=== PATIENT | male | born 1990 | race Caucasian/White ===

== ENCOUNTER 2018-01-24 22:08 | Emergency (ER) | payer BC, OTHER ==
[~2018-01-24] VITALS: Ht 172.7 cm; Wt 68.7 kg
[2018-01-24 22:12] VITALS: BP 130/85; TEMP 36.6; Ht 172.7 cm; Wt 68.7 kg
[2018-01-24] MEDS ORDERED: OXYCODONE HCL IR 5 MG TAB (IMMEDIATE RELEASE) PO STA (22:36)
[2018-01-24] MEDS ORDERED: BUPIVACAINE 0.5 % 5 MG/1 ML MPF 30ML VIAL INFIL ONE (22:45)
[2018-01-24] MEDS ORDERED: XYLOCAINE 1%/SOD BICARB 20 ML VIAL INFIL ONE (22:45)
--- NOTE | 2018-01-24 23:08 | DIAGNOSTIC IMAGING REPORT ---
LEFT THUMB 3 VIEWS HISTORY: left thumb injury, drillbit into thumb COMPARISON: None. FINDINGS: There is no fracture or dislocation. Overlying bandage obscures fine bony detail. There is suggestion of a soft tissue laceration within the distal thumb. No radiopaque foreign bodies. IMPRESSION: No fractures within the left thumb. Electronically signed by: Dino Rincon M.D. 01/24/2018 11:06 PM Dictated Date/Time: 01/24/2018 11:05 PM
[2018-01-24] MEDS ORDERED: CEPHALEXIN 500MG HOME PACK 1 EA BTL PO ONE (23:45)
[2018-01-24] MEDS ORDERED: CEPH500C PO (23:51)
--- NOTE | 2018-01-24 23:52 | EMERGENCY ROOM VISIT NOTE ---
History First contact with patient: 22:24 Chief Complaint: LACERATION/CUT (SUT/DERMABOND) Stated Complaint: LT THUMB Nursing Triage Summary: laceration to the left thumb and puncture wound next to the area. History of Present Illness The patient is a 27 year old male who presents to the Emergency Room with complaints of an injury to his left thumb. The patient reports that he was using a drill and the drill bit broke off and went through his left thumb. He states that he was able to remove the entire drill bit from his thumb. The injury occurred 1 hour prior to arrival. He rates his discomfort an 8/10. He is able to move the thumb, but states it is painful to do so. He states his pain is sharp. He has not taken any medication for the pain. The patient is unsure of his tetanus status. He denies any numbness or weakness. Review of Systems A complete 6 point review of systems was reviewed with the patient with pertinent positives and negatives as per history of present illness. All else were negative. Past Medical/Surgical History Medical Problems: (1) Flexor Tenosynovitis Left Thrid Finger (2) No known problems (3) Tobacco Use Disorder Surgical Problems: (1) No significant past surgical history Family History FH: cancer FH: diabetes mellitus FH: heart disease FH: hypertension Hypertension Social History Smoking Status: Current Some Day Smoker Alcohol Use: none Marital Status: single Housing Status: lives with family Occupation Status: employed Current/Historical Medications Scheduled Cephalexin Monohydrate (Keflex), 500 MG PO QID Physical Exam Vital Signs Date Time Temp Pulse Resp B/P (MAP) Pulse Ox O2 Delivery O2 Flow Rate FiO2 01/25/18 00:26 72 18 99 01/24/18 22:12 36.6 76 20 130/85 99 Room Air Physical Exam VITALS: Vitals are noted on the nurse's note and reviewed by myself. Vital signs stable. GENERAL: This is a 27-year-old male, in no acute distress, nondiaphoretic, well- developed well-nourished. SKIN: There are 2 puncture wounds to the left thumb. The first puncture wound is distal to the IP joint along the lateral aspect of the dorsal thumb. This wound measures approximately 1 cm. The second puncture wound is proximal to the IP joint. There is a flap of skin measuring approximately 0.5 cm. There is no active bleeding from either wound. No foreign body seen in the wound. MUSCULOSKELETAL: Decreased flexion and extension of the left thumb due to patient discomfort. Capillary refill within 2 seconds. NEURO: Patient was alert and oriented to person place and time. Normal sensation of the left thumb. Medical Decision & Procedures ER Provider Diagnostic Interpretation: LEFT THUMB 3 VIEWS HISTORY: left thumb injury, drillbit into thumb COMPARISON: None. FINDINGS: There is no fracture or dislocation. Overlying bandage obscures fine bony detail. There is suggestion of a soft tissue laceration within the distal thumb. No radiopaque foreign bodies. IMPRESSION: No fractures within the left thumb. Medications Administered Medications (Trade) Dose Ordered Sig/Nupur Route Start Time Stop Time Status Last Admin Dose Admin Oxycodone HCl (Roxicodone Immediate Rel Tab) 5 mg NOW STAT PO 01/24/18 22:36 01/24/18 22:40 DC 01/24/18 22:55 5 MG Cephalexin Monohydrate (Keflex 500MG Home Pack) 1 homepack NOW ONCE PO 01/24/18 23:45 01/24/18 23:48 DC 01/25/18 00:20 1 HOMEPACK Diphtheria/ Pertussis/Tetanus Vacc (Adacel Inj) 0.5 ml ONCE ONCE IM. 01/25/18 00:15 01/25/18 00:16 DC 01/25/18 00:21 0.5 ML Procedure CHIEF COMPLAINT: Finger laceration Verbal consent was obtained to perform the procedure. Using sterile technique the wound was cleansed with Betadine. 5 ml of a one-to-one solution of bupivacaine and 1% buffered lidocaine was used to perform a digital block to anesthetize the patient. The area was sterilely draped. Once the patient was anesthetized, the wound was copiously irrigated under pressure with sterile saline. The wound was explored to the best of my ability and there were no deep structures obviously injured. The distal puncture wound was repaired using 3 simple interrupted 5-0 nylon sutures. The proximal puncture wound flap was approximated using one simple interrupted 5-0 nylon suture. The patient tolerated the procedure well. Hemostasis was achieved. The area was cleaned with sterile saline and dressed with bacitracin ointment and bandage. Medical Decision The patient was evaluated as above. Patient was treated with 5 mg OxyIR for pain. X-ray of the finger was obtained and reviewed by radiology with no acute fractures. The patient sustained an injury which punctured the skin and had both an entry and exit wound. There was no obvious tendon injury, however patient does have some swelling and difficulty moving the finger due to pain and it is impossible to exclude an extensor tendon injury based on the exam. A digital block was performed and the wound was copiously irrigated. Sutures were used to approximate the tissues loosely. The patient was placed in a metal finger splint. He will be placed on Keflex to prevent infection. Tetanus was updated. I did recommend follow-up with orthopedics for evaluation of possible tendon injury, especially if the patient has any persistent difficulty moving the fingers after the swelling has decreased. The patient was agreeable to this treatment plan. He was instructed to return here immediately if he has any redness or swelling surrounding the area or other new/ concerning symptoms. He verbalized understanding of my assessment and treatment plan and was discharged home in good condition. Impression Primary Impression: Puncture wound of finger of left hand Departure Information Dispostion Home / Self-Care Condition GOOD Prescriptions Cephalexin Monohydrate (Keflex) 500 Mg Cap 500 MG PO QID for 7 Days, #28 CAP Prov: Sanna Ruelas ., ANA MARIA 01/24/18 Referrals No Doctor, Assigned (PCP) Raymon Henley D.O. Patient Instructions My [facility] Additional Instructions You have received 4 sutures on your finger. These sutures are NOT dissolvable and WILL need to be removed by a health care provider in 10-12 days. You can return to the Emergency Department or contact your Primary Care Provider to have the sutures removed. Proper wound care is essential for adequate wound healing and infection prevention. You can shower and clean the wound with soap and water. Do not scour over the wound, pat dry with a towel. Do not submerse the wound (i.e. bathe or dish wash) until the sutures have been removed. You can use an antibiotic ointment with a dressing over the wound for the next 3-4 days. After this time you may leave the wound dry and open to the air. If crust develops over the wound you can use a Q-tip to apply a 1:1 peroxide:water solution to clean the wound. Look for signs of infection of the wound including: increased pain, swelling, foul discharge, streaking, or increased temperature. If any of these are noticed you should return to the Emergency Department for further assessment and treatment. As with any laceration you may have received nerve damage to the surrounding tissues. This damage may or may not be permanent. For pain control, you can use the following [id number] medicines (if >12 yo): - Regular strength (325mg/tab) Tylenol (acetaminophen) 2 tabs every 4-6 hours as needed. Do not exceed 12 tablets in a 24 hour period. Avoid taking more than 4 grams (4000 mg) of Tylenol per day. This includes any other sources of acetaminophen you may take on a regular basis. - Regular strength (200 mg/tab) Advil (ibuprofen) 1-2 tabs every 4-6 hours as needed. Do not exceed a dose of 3200 mg per day. Follow-up with orthopedics if you have any redness or swelling of the area or any difficulty moving the finger after the swelling has decreased. Return to the emergency department if your symptoms worsen despite treatment course outlined above. Problem Qualifiers Primary Impression: Puncture wound of finger of left hand Encounter type: initial encounter Qualified Codes: S61.239A - Puncture wound without foreign body of unspecified finger without damage to nail, initial encounter
[2018-01-25] MEDS ORDERED: DIPHTHERIA/TETANUS/PERTUSSIS 0.5 ML SYR/VIAL IM. ONE (00:15)
[2018-01-25 00:26] VITALS: PULSE 72; O2SAT 99
== END 2018-01-25 00:26 | disposition home or self-care (01) ==
LOC: C.EDB 22:08
DX: S61.239A Puncture wound without foreign body of unspecified finger without damage to nail, initial encounter (principal); W29.8XXA Contact with other powered hand tools and household machinery, initial encounter; Z83.3 Family history of diabetes mellitus; Z82.49 Family history of ischemic heart disease and other diseases of the circulatory system; F17.200 Nicotine dependence, unspecified, uncomplicated; Z23 Encounter for immunization